=== PATIENT | female | born 1950 | race Hispanic/Latino ===

== ENCOUNTER → 2018-06-25 | Outpatient (CLI) | payer MEDICARE ==
[~2018-06-25] MED LIST: ATORVASTATIN CA20 MG PO; GABAPENTIN300 MG PO; HYDROCHLOROTHIA25 MG PO; LORATADINE10 MG PO; METOPROLOL TART50 MG PO; TYLENOL EXTRA500 MG PO
--- NOTE | 2018-06-25 13:45 | Diagnostic Imaging Report ---
EXAM: Thyroid Ultrasound INDICATION: \[id number] \S\[id number] \S\THYROID NODULE COMPARISON: FNA 2016 TECHNIQUE: Transverse and sagittal images were obtained of the thyroid gland. FINDINGS: Thyroid gland: Size: Right lobe: 4.1 x 2.3 x 2.4 cm, Normal in size Left lobe: Surgically absent Isthmus: 0.3 cm, Normal in size Appearance: Heterogeneous echotexture without increased vascularity Masses/Nodules: Right lobe: 2.8 x 2.1 x 2.1 cm solid (2 pts) nodule in the superior pole with smooth margin (0 pts), yypckh-ywjs-iehy (3 pts), isoechoic (1 pt), and no calcifications (0 pts). TR4c (>1.5 cm), Moderately Suspicious: FNA. It previously measures 2.0 x 1.9 x 1.8 cm, per report. FNA obtained on 01/19/2017. 0.7 cm cystic (0 pts) nodule in the superior pole with smooth margin (0 pts), eglqc-ulto-syuq (0 pts), anechoic (0 pts), and no calcifications (0 pts). Previously 0.5 cm. TR1, Benign: No FNA 0.6 cm cystic (0 pts) nodule in the inferior pole with smooth margin (0 pts), fokia-rqha-yfsa (0 pts), anechoic (0 pts), and no calcifications (0 pts). Previously not seen. TR2, Not Suspicious: No FNA. Parathyroid: No focal parathyroid masses. 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 No recurrent nodules at the surgical site. Complex 2.8 cm right thyroid nodule, which appears mildly increased report when compared to prior exam which measured up to 2 cm. TR4c (>1.5 cm), Moderately Suspicious: Consider repeat FNA TI-RADS Lexicon: TR1, Benign: No FNA TR2, Not Suspicious: No FNA. TR3a (<1.5 cm): No follow-up. TR3b (1.5-2.5 cm), Mildly Suspicious: Follow at 1, 3, 5 years. TR3c (>2.5 cm), Mildly Suspicious: FNA. TR4a (<1.0 cm): No follow-up. TR4b (1.0-1.5 cm), Moderately Suspicious: Follow at 1, 2, 3, 5 years. TR4c (>1.5 cm), Moderately Suspicious: FNA. TR5a (<0.5 cm): No follow-up. TR5b (0.5-1.0 cm), Highly Suspicious: Follow at 1, 2, 3, 4, 5 years. TR5c (>1.0 cm), Highly Suspicious: FNA. *Rebiopsy if new suspicious features *No recommendation at this time for significant interval growth. Nodule Characteristics: * Benign features: cystic, hyperechoic, comet-tail artifact, complete halo * Minor suspicious features: solid, hypoechoic, other calcifications * Major suspicious features: microcalcifications, marked hypoechoic (less than strap muscle), suspicious lymph nodes, taller than wide, lobulated or ill-defined margins. Literature: ACR Thyroid Imaging, Reporting and Data System (TI-RADS): White Paper of the ACR TI-RADS Committee. J Am Sneha Radiol 2017. Signed by: Dr. Mima Mantilla M.D. on 06/25/2018 1:41 PM
== END ==
LOC: US 09:55
PROVIDERS: ATTEND Otolaryngology
DX: E04.1 Nontoxic single thyroid nodule (principal)
CPT/HCPCS: 76536

== ENCOUNTER → 2018-07-12 | Outpatient (CLI) | payer MEDICARE ==
--- NOTE | 2018-07-12 11:13 | Diagnostic Imaging Report ---
PROCEDURE:BIOPSY THYROID FNA COMPARISON:None. Preprocedure diagnosis: Right thyroid nodule Post procedure diagnosis: Right thyroid nodule Stain Applicator: Live Fisher M.D. Sedation/anesthesia: None Additional medications: Lidocaine 1% for local anesthesia Estimated blood loss: Minimal Blood product administered: None Implants/grafts: None Specimens: Fine needle aspiration specimens x3 Complications: No immediate Condition at completion: Stable Disposition: Discharge home FINDINGS: Informed consent was obtained and documented in the medical record after discussion of risks and benefits. The right cervical region was prepped and draped in the standard sterile fashion. 1% lidocaine was infiltrated into the skin and subcutaneous tissues for local anesthesia. Then under continuous sonographic guidance a total of 3 fine needle aspiration specimens of the right thyroid nodule were obtained using 25 gauge needles. Specimens were submitted to cytopathology personnel and adequacy was confirmed. At the conclusion of sampling the needle was removed and a sterile dressing was applied. Patient tolerated the procedure well without immediate location. CONCLUSION: Successful ultrasound-guided fine needle aspiration of a right thyroid nodule as above. Dictated by: Live Fisher M.D. on 07/12/2018 at 11:21 Electronically approved by: Live Fisher M.D. on 07/12/2018 at 11:21
--- NOTE | 2018-07-12 11:13 | Diagnostic Imaging Report ---
PROCEDURE:ULTRASOUND GUIDANCE FOR PROCEDURE COMPARISON:None. INDICATIONS: RT THYROID NODULE PROCEDURE: Refer to conclusion CONCLUSION: For full dictated report, please refer to "BIOPSY THYROID FNA" also from 07/12/2018. Dictated by: Live Fisher M.D. on 07/12/2018 at 11:21 Electronically approved by: Live Fisher M.D. on 07/12/2018 at 11:21
== END ==
LOC: US 07:56
PROVIDERS: ATTEND Otolaryngology
DX: E07.9 Disorder of thyroid, unspecified (principal)
CPT/HCPCS: 10022; 76942; 88172; 88173; 88305

== ENCOUNTER 2019-05-03 16:16 | Emergency (ER) | payer MEDICARE ==
[~2019-05-03] VITALS: Ht 149.9 cm; Wt 83.0 kg
--- OUTSIDE RECORDS SUMMARY | 2019-05-03 16:20 | XMS REPORT | Clinical Summary ---
Author Author [facility] Organization [facility] Address Unknown Phone Unavailable Care Team Providers Care Manager Bench Name Role Phone Deisi Oliveira MD PCP Allergies No Known Allergies Medications End Date Status Medication Sig Dispensed Refills Start Date Active MULTIVITAMIN take 1 tablet 30 0 TABIndications: by oral route 9 Hypokalemia once daily with food Active albuterol (PROVENTIL HFA) Inhale 2 6.7 g 1 90 mcg/actuation Puffs by 5 inhalerIndications: RAD mouth 4 times (reactive airway disease) daily as needed (cough). Active dexlansoprazole Take 1 tablet 90 capsule 0 (DEXILANT) 30 mg delayed by mouth once 7 release a day as capsuleIndications: needed for Dyspepsia gastritis.. Active gabapentin (NEURONTIN) Take 1 90 capsule 3 300 mg capsule by 8 capsuleIndications: mouth 3 times Musculoskeletal pain daily. Active ibuprofen (MOTRIN) 600 mg Take 1 tablet 30 tablet 1 tabletIndications: Acute by mouth 8 pain of left knee every 8 hours as needed for Pain. Active alendronate (FOSAMAX) 70 TOME SARIKA (1) 12 tablet 3 mg tabletIndications: TABLETA(S) 9 Senile osteoporosis POR LA BOCA SARIKA VES A LA SEMANA EN [place] VACIO CON 8 ONZAS DE AGUA Y MANTENGASE VERTICAL POR 30 MINUTOS.. Active levothyroxine (SYNTHROID) Take 1 tablet 90 tablet 3 50 mcg tabletIndications: by mouth 9 Hypothyroidism, daily. unspecified type Active losartan (COZAAR) 50 mg TOME SARIKA (1) 180 tablet 3 tabletIndications: TABLETA(S) 9 Essential hypertension POR LA BOCA DOS VECES AL KAYLA.. Active hydroCHLOROthiazide Take 1/2 45 tablet 3 (HYDRODIURIL) 25 mg tablet (12.5 9 tabletIndications: mg) by mouth Essential hypertension each day for blood pressure.. Active metoprolol tartrate TOME SARIKA (1) 180 tablet 3 (LOPRESSOR) 100 mg TABLETA(S) 9 tabletIndications: POR LA BOCA Essential hypertension DOS VECES AL KAYLA PARA PRESION.. Active calcium carb/vit Take 1 tablet 180 tablet 3 D3/minerals (CALCIUM by mouth 2 9 CARBONATE-VIT D3-MIN) 600 times daily. mg (1,500 mg)-400 unit ChewIndications: Senile osteoporosis Active fluticasone (FLONASE Use 1 [place] 16 g 2 ALLERGY RELIEF) 50 in each 9 mcg/actuation nasal nostril sprayIndications: Acute daily. sinusitis, recurrence not specified, unspecified location Active cetirizine (ZYRTEC) 10 mg Take 1 tablet 90 tablet 3 tabletIndications: Acute by mouth 9 sinusitis, recurrence not daily. specified, unspecified location Active atorvastatin (LIPITOR) 20 TOME SARIKA (1) 90 tablet 3 mg tabletIndications: TABLETA(S) 9 Hyperlipidemia, POR LA BOCA unspecified AL hyperlipidemia type ACOSTARSE.. 11/10/2018 Discontinued loratadine (CLARITIN) 10 Take 1 tablet 90 tablet 1 mg tabletIndications: by mouth 4 Sinusitis daily. 11/10/2018 Discontinued ergocalciferol (VITAMIN Take 1 12 capsule 2 D2) 50,000 unit capsule by 6 capsuleIndications: mouth weekly. Vitamin D deficiency 11/10/2018 Discontinued sertraline (ZOLOFT) 25 mg Take 1 tablet 90 tablet 0 tabletIndications: by mouth at 6 Agitation bedtime nightly. 06/19/2018 Discontinued metoprolol tartrate Take 1 tablet 180 tablet 3 (LOPRESSOR) 100 mg by mouth 2 7 tabletIndications: times daily Essential hypertension Take for blood pressure.. 11/10/2018 Discontinued alendronate (FOSAMAX) 70 Take 1 tablet 12 tablet 3 mg tabletIndications: once a week 8 Senile osteoporosis on empty stomach with 8 oz of water and remain upright for 30 minutes. 11/10/2018 Discontinued atorvastatin (LIPITOR) 20 TOME SARIKA (1) 90 tablet 0 mg tabletIndications: TABLETA(S) 8 Hyperlipidemia with POR LA BOCA target LDL less than 130 AL ACOSTARSE. 11/10/2018 Discontinued hydroCHLOROthiazide TOME SARIKA (1) 90 tablet 0 (HYDRODIURIL) 25 mg TABLETA(S) 8 tabletIndications: POR LA BOCA Essential hypertension SARIKA VEZ AL KAYLA PARA LA PRESION. 11/10/2018 Discontinued losartan (COZAAR) 50 mg TOME SARIKA (1) 180 tablet 0 tabletIndications: TABLETA(S) 8 Essential hypertension POR LA BOCA DOS VECES AL KAYLA. 11/10/2018 Discontinued levothyroxine (SYNTHROID) Take 1 tablet 90 tablet 3 50 mcg tabletIndications: by mouth 8 Hypothyroidism, daily. unspecified type 11/10/2018 Discontinued metoprolol tartrate TOME SARIKA (1) 180 tablet 2 (LOPRESSOR) 100 mg TABLETA(S) 8 tabletIndications: POR LA BOCA Essential hypertension DOS VECES AL KAYLA PARA PRESION. 11/11/2018 Discontinued alendronate (FOSAMAX) 70 Take 1 tablet 12 tablet 3 mg tabletIndications: once a week 9 Senile osteoporosis on empty stomach with 8 oz of water and remain upright for 30 minutes. 11/15/2018 amoxicillin-clavulanate Take 2 20 tablet 0 (AUGMENTIN XR) 1,000-62.5 tablets by 9 mg extended release mouth 2 times tabletIndications: Acute daily for 5 sinusitis, recurrence not days. specified, unspecified location 01/10/2019 azithromycin (ZITHROMAX) Take 2 6 Each 0 250 mg tabletIndications: tablets by 9 Cough mouth on the first day, then take one tablet every day for the next 4 days. Active Problems Problem Noted Date Dyspepsia: on prn meds//on meds///patient educated f/u with PCP in 6 wk 07/16/201807/29 Renal artery aneurysm: s/p embolization in January 2015 08/25/2014 Liver mass: hemangioma noted on imaging 08/25/2014 Adrenal mass: stated to be benign on imaging 08/25/2014 Hyperlipidemia with target LDL less than 130 01/08/2010 Hip pain 12/25/2008 GERD (gastroesophageal reflux disease) 02/02/2008 HTN (hypertension) 09/24/2006 Papillary carcinoma f/u at out side clinic per patient 07/29 Overview: s/p total thyroidectomy Encounters Care Team Description Date Type Specialty Deisi Oliveira MD 01/12/2019 Ancillary Radiology Procedure 01/12/2019 Travel Deisi Oliveira MD Hypertension, unspecified type (Primary Dx); Screening for breast cancer; Prediabetes; Cough; Obesity (BMI 30-39.9); Hypothyroidism, unspecified type; Hyperlipidemia, unspecified hyperlipidemia type 01/05/2019 Office Visit [facility] 01/05/2019 Travel Deisi Oliveira MD Essential hypertension 12/21/2018 Refill [facility] Deisi Oliveira MD Tinnitus of both ears (Primary Dx); Hypothyroidism, unspecified type; Essential hypertension; Senile osteoporosis; Acute sinusitis, recurrence not specified, unspecified location; Breathing difficulty; Hyperlipidemia, unspecified hyperlipidemia type; Prediabetes; Dietary counseling for Above / Below Normal BMI; Exercise counseling for Above Normal BMI Only!; Hearing loss of left ear, unspecified hearing loss type 11/10/2018 Office Visit [facility] 11/10/2018 Travel Deisi Oliveira MD Senile osteoporosis 11/08/2018 Refill [facility] Deisi Oliveira MD Latifi, Haleema T, MD Acute pain of left knee: 1 mo: to bend: meds given/cons PT //patient educated f/u with PCP in 6 wk 07/29 (Primary Dx); Encounter for vaccination; Essential hypertension on meds///patient educated f/u with PCP in 6 wk 07/29 ; Papillary carcinoma f/u at out side clinic per patient 07/29 on meds///patient educated f/u with PCP in 6 wk 07/29 ; Dyslipidemia: on meds///patient educated f/u with PCP in 6 wk 07/29 ; Non morbid obesity due to excess calories patient educated f/u with PCP in 6 wk 07/29 ; Dyspepsia: on prn meds//on meds///patient educated f/u with PCP in 6 wk 07/2907/16/2018 Office Visit Family Practice Deiis Oliveira MD Essential hypertension 06/19/2018 Refill Family Practice after 05/02/2018 Immunizations Name Administration Dates Next Due Herpes Zoster Vaccine In 06/30/2014 Clinic Influenza Vaccine 08/12/2016, 09/26/2015, 08/25/2014, 10/23/2011, 08/23/2010, 12/25/2008 Influenza Vaccine, 12/29/2017 Seasonal, Injectable Influenza, 07/16/2018 Vaccine<FLUCELVAX>(Multi- Dose) PPV 23 (Pneumococcal 12/29/2017 Polysaccharide 23 Valent) Pneumococcal 13-valent 08/12/2016 conj 0.5 mL injection Tdap Tetanus, diphtheria, 12/25/2008 acellular pertussis Vaccine Triamcinolone 40mg/ml Inj 11/14/2014 Family History Medical History Relation Name Comments Diabetes Father Arthritis Mother Hypertension Mother Relation Name Status Comments Brother Alive Brother Alive Brother Alive Daughter Alive Father Alive Mother Alive Sister Alive Sister Alive Sister Alive Sister Alive Sister Alive Son Alive Son Alive Son Alive Son Alive Social History Date Tobacco Use Types Packs/Day Years Used Never Smoker Smokeless Tobacco: Never Used Tobacco Cessation: Counseling Given: No Drinks/Week oz/Week Comments Alcohol Use 0 Standard drinks or equivalent 0.0 No Food Insecurity Answer Date Recorded Within the past 12 months, you worried that your Never true 01/05/2019 food would run out before you got money to buy more. Within the past 12 months, the food you bought Never true 01/05/2019 just didn't last and you didn't have money to get more. Sex Assigned at Date Recorded Not on file Industry Job Start Date Occupation Not on file Not on file Not on file Travel End Travel History Travel Start No recent travel history available. Last Filed Vital Signs Reading Time Taken Comments Vital Sign 138/78 01/05/2019 10:51 AM CDT Blood Pressure 59 01/05/2019 10:13 AM CDT Pulse 36.7 C (98 F) 01/05/2019 10:13 AM CDT Temperature 19 01/05/2019 10:13 AM CDT Respiratory Rate 100% 11/10/2018 10:45 AM APPRENTICE COOK Oxygen Saturation - - Inhaled Oxygen Concentration 81.5 kg (179 lb 9.6 oz) 01/05/2019 10:13 AM CDT Weight 151.9 cm (4' 11.8") 01/05/2019 10:13 AM CDT Height 35.31 01/05/2019 10:13 AM CDT Body Mass Index Plan of Treatment Care Team Description Date Type Specialty Deisi Oliveira MD [address] [facility] [address] [place] [address] [phone] pt felt and injured her head a week ago and is experiencing headaches 05/18/2019 Office Visit Family [facility] Maintenance Due Date Last Done Comments IMM Influenza Seasonal 07/12/2019 07/16/2018, 12/29/2017, 10/23/2011Jul to December (>/=19 yrs) Colonoscopy 3yr 01/06/2020 01/05/2017 Breast Cancer Scrn 01/13/2020 01/12/2019, 11/27/2017, 09/11/2016, (Yearly) Additional history exists IMM Pneumococcal Age 66 Completed 08/12/2016 and Up Implants Device Identifier Shelf Expiration Date Model / Serial / Lot Implanted Type Area Manufactur er 04/10/2017 [id number] / / [id number] Azur Peripheral Coil System Right: Artery, Detachable 18 Framing Coil 8mm X Renal 20cm Implanted: Qty: 1 on 11/27/2014 by Kareen Nava MD at [facility] 07/11/2019 [id number] / / [id number] Azur Cx Peripheral Coil System Right: Artery, Detachable 18 Cx Coil 6mm X 20cm Renal Implanted: Qty: 1 on 11/27/2014 by Kareen Nava MD at [facility] 07/11/2019 [id number] / / [id number] Azur Cx Peripheral Coil System Right: Artery, Detachable 18 Cx Coil 6mm X 20cm Renal Implanted: Qty: 1 on 11/27/2014 by Kareen Nava MD at [facility] 05/11/2015 / / [id number] Mynxgrip Vascular Closure Device Right: Artery, ACCESS 6f/7f Renal CLOSURE Implanted: Qty: 1 on 11/27/2014 by Kareen Perdomo MD at [facility] Description: MYNXGRIP Vascular Closure Device Ref # [id number] Procedures Comments Procedure Name Priority Date/Time Associated Diagnosis MAMMOGRAM BILAT SCREEN Routine 01/12/2019 Screening for breast DIGITAL 8:47 AM CDT cancer LIVER PROFILE Routine 11/10/2018 Hyperlipidemia, 10:53 AM APPRENTICE COOK unspecified hyperlipidemia type LIPID PROFILE Routine 11/10/2018 Hyperlipidemia, 10:53 AM APPRENTICE COOK unspecified hyperlipidemia type BASIC METABOLIC PANEL Routine 11/10/2018 Prediabetes 10:53 AM APPRENTICE COOK HEMOGLOBIN A1C Routine 11/10/2018 Prediabetes 10:53 AM APPRENTICE COOK FREE T4 Routine 11/10/2018 Hypothyroidism, 10:53 AM APPRENTICE COOK unspecified type THYROID STIMULATING Routine 11/10/2018 Hypothyroidism, HORMONE (TSH) 10:53 AM APPRENTICE COOK unspecified type NONINVASV OXYGEN Routine 11/10/2018 Breathing difficulty SATUR;SINGLE 10:23 AM APPRENTICE COOK PURE TONE AUDIOMETRY Routine 11/10/2018 Tinnitus of both ears (THRESHOLD); AIR ONLY 10:23 AM APPRENTICE COOK after 05/02/2018 Results * MAMMOGRAM BILAT SCREEN DIGITAL (01/12/2019 8:47 AM CDT) Specimen Impressions Performed At IMPRESSION: BENIGN SMS There is no mammographic evidence of malignancy. A 1 year screening mammogram is recommended. I have reviewed the study and agree with the findings in the report. This document has been electronically signed. Fiorella Jeronimo M.D. to,at/penrad:01/12/2019 09:12:18 Legislative Advocate: Osvaldo Dickinson Sr. Clinical Pharmacy Coordinator, [facility] letter sent: Benign Exam Mammogram BI-RADS: 2 Benign G0202 z12.31 Narrative Performed At #[id number] - MAMMOGRAM BILAT SCREEN DIGITAL SMS BILATERAL DIGITAL SCREENING MAMMOGRAM WITH CAD: 01/12/2019 CLINICAL: Screening for malignancy. Comparison is made to exams dated:11/27/2017 [facility], 09/11/2016 [facility] [place], 03/15/2015, 12/05/2013, and 04/22/2012 [facility]. The tissue of both breasts is heterogeneously dense. This may lower the sensitivity of mammography. Current study was also evaluated with a Computer Aided Detection (CAD) system. There are benign masses in both breasts.There also are benign calcifications in both breasts. No significant masses, calcifications, or other findings are seen in either breast. There has been no significant interval change. Procedure Note Interface, Rad/Mammog In - 01/12/2019 10:12 AM CDT #[id number] - MAMMOGRAM BILAT SCREEN DIGITAL BILATERAL DIGITAL SCREENING MAMMOGRAM WITH CAD: 01/12/2019 CLINICAL: Screening for malignancy. Comparison is made to exams dated: 11/27/2017 [facility], 09/11/2016 [facility], 03/15/2015, 12/05/2013, and 04/22/2012 [facility]. The tissue of both breasts is heterogeneously dense. This may lower the sensitivity of mammography. Current study was also evaluated with a Computer Aided Detection (CAD) system. There are benign masses in both breasts. There also are benign calcifications in both breasts. No significant masses, calcifications, or other findings are seen in either breast. There has been no significant interval change. IMPRESSION IMPRESSION: BENIGN There is no mammographic evidence of malignancy. A 1 year screening mammogram is recommended. I have reviewed the study and agree with the findings in the report. This document has been electronically signed. Fiorella Jeronimo M.D. to,at/johnrad:01/12/2019 09:12:18 Legislative Advocate: Osvaldo Dickinson . Clinical Pharmacy Coordinator, [facility] letter sent: Benign Exam Mammogram BI-RADS: 2 Benign G0202 z12.31 Performing Organization Address City/State/Zipcode Phone Number SMS * HEMOGLOBIN A1C (11/10/2018 10:53 AM APPRENTICE COOK) Hemoglobin A1c 6.3 (H) 4.3 - 6.1 % [facility] Est Average 134.1 mg/dL [facility] Gluc Specimen Blood Performing Organization Address City/State/Zipcode Phone Number M[facility] * TSH (11/10/2018 10:53 AM APPRENTICE COOK) TSH 3.37 0.57 - 3.74 uIU/mL [facility] 1 Specimen Blood Performing Organization Address [facility] Phone Number [facility]IN[facility] 1 * FREE T4 (11/10/2018 10:53 AM APPRENTICE COOK) Free T4 0.91 0.61 - 1.18 ng/dl [facility] Comment: 1 females: 1st Trimester-0.52-1.10 ng/dL 2nd Trimester=0.45-0.99 ng/dL 3rd Trimester=0.48-0.95 ng/dL Specimen Blood Performing Organization Address [facility] Phone Number M[facility]YS BT MAIN-STATION 1 * LIVER PROFILE (11/10/2018 10:53 AM APPRENTICE COOK) Protein, Total, 6.9 6.0 - 8.3 g/dL [facility] Serum 1 Albumin 4.0 3.7 - 5.3 g/dL BT [facility] 1 Bilirubin, 0.5 0.2 - 1.2 mg/dL BT [facility] Total 1 Alkaline 65 34 - 104 U/L BT [facility] Phosphatase, S 1 AST (SGOT) 13 13 - 39 U/L BT MA[facility] 1 ALT 21 7 - 52 U/L BT MA[facility] 1 D Bilirubin 0.1 0.0 - 0.2 mg/dL BT MAIN[facility] 1 Specimen Blood Performing Organization Address [facility] Phone Number [facility] BT MAIN-ST[facility] 1 * LIPID PROFILE (11/10/2018 10:53 AM APPRENTICE COOK) Cholesterol 133 mg/dL BT [facility] Comment: 1 REFERENCE RANGE: Desirable: <200 mg/dL Borderline: 200-240 mg/dL High Risk: >240 mg/dL Triglyceride 195 (H) <150 mg/dL BT [facility] Comment: 1 REFERENCE RANGE: Normal: <150 mg/dL Borderline High: 150-199 mg/dL High: 200-499 mg/dL Very High: >gp=796 mg/dL HDL 48 mg/dL BT [facility] Comment: 1 Increased CHD risk: <40 mg/dL Decreased CHD risk: >60 mg/dL LDL 46 mg/dL BT [facility] Comment: 1 REFERENCE RANGE: Optimal: <100 mg/dL Near Optimal: 100-129 mg/dL Borderline High: 130-159 mg/dL High: 160-189 mg/dL Very High: >yx=093 mg/dL Specimen Blood Performing Organization Address City/State[facility] Phone Number [facility] 1 * BASIC METABOLIC PANEL (11/10/2018 10:53 AM APPRENTICE COOK) CO2 30 21 - 31 mmol/L BT MAIN-STATION 1 Chloride 102 98 - 107 mmol/L BT MAIN-STATION 1 Potassium 3.7 3.5 - 5.1 mmol/L BT MAIN-STATION 1 Sodium 141 136 - 145 mmol/L BT MAIN-STATION 1 Glucose 101 70 - 110 mg/dL BT MAIN[facility] 1 BUN 15 7 - 25 mg/dL BT MAIN-STATION 1 Creatinine 0.60 0.6 - 1.2 mg/dL BT MAIN-STATION 1 Anion Gap 9 BT MAIN-STATION 1 Calcium 8.4 (L) 8.6 - 10.3 mg/dL BT MAIN-STATION 1 GFR, Estimated >60 mL/min/1.73 m2 BT MAIN-STATION 1 eGFR If Africn >60 mL/min/1.73 m2 BT MAIN-STATION Am 1 Specimen Blood Performing Organization Address City/[facility] Phone Number [facility] BT [facility] 1 after 05/02/2018 Insurance Type Payer Benefit Subscriber ID Effective Phone Address Plan / Dates Group MEDICARE MEDICARE xxxxxxxxxxx 2016-P [phone] [id number] [place] [address] (Work) Advance Directives Date Inactivated Comments Code Status Date Activated 11/28/2014 4:25 PM Full Code 11/27/2014 5:45 PM
--- OUTSIDE RECORDS SUMMARY | 2019-05-03 16:20 | XMS REPORT ---
Author Author [facility] Address Unknown Phone Unavailable Care Team Providers Care Fire Coordinator Name Role Phone RAN MANNY Unavailable Unavailable Bernice GALVAN Unavailable Unavailable Problems This patient has no known problems. Allergies, Adverse Reactions, Alerts This patient has no known allergies or adverse reactions. Medications This patient has no known medications. Encounters Start Date/Time End Date/Time Encounter Type Admission Type Attending [facility] Care Department Encounter ID 2019-05-18 00:00:00 2019-05-18 00:00:00 Outpatient [facility] [id number] 2019-03-22 00:00:00 2019-03-22 00:00:00 Outpatient [facility] [id number] 2019-03-22 00:00:00 2019-03-22 00:00:00 Outpatient [facility] [id number] 2019-03-02 00:00:00 2019-03-02 00:00:00 Outpatient [facility] [id number] 2019-01-12 08:11:29 2019-01-12 08:11:29 Outpatient [facility] [id number] 2019-01-05 10:12:22 2019-01-05 10:12:22 Outpatient [facility] [id number] 2018-11-10 11:00:57 2018-11-10 11:00:57 Outpatient [facility] [id number] 2018-11-10 09:32:53 2018-11-10 09:32:53 Outpatient [facility] [id number] 2018-08-30 00:00:00 2018-08-30 00:00:00 Outpatient [facility] [id number] 2018-07-16 14:18:29 2018-07-16 14:18:29 Outpatient [facility] [id number] 2018-07-12 00:00:00 2018-07-12 00:00:00 Outpatient [facility] [id number] 2018-06-19 00:00:00 2018-06-19 00:00:00 Outpatient [facility] [id number] 2018-02-18 09:51:28 2018-02-18 09:51:28 Outpatient [facility] [id number] 2018-02-12 11:24:53 2018-02-12 11:24:53 Outpatient [facility] [id number] 2018-02-12 09:26:39 2018-02-12 09:26:39 Outpatient [facility] [id number] 2018-02-09 08:48:18 2018-02-09 08:48:18 Outpatient [facility] [id number] 2017-12-29 11:15:06 2017-12-29 11:15:06 Outpatient [facility] [id number] 2017-11-27 08:07:18 2017-11-27 08:07:18 Outpatient [facility] [id number] 2017-11-06 08:23:49 2017-11-06 08:23:49 Outpatient [facility] [id number] 2017-11-03 13:52:07 2017-11-03 13:52:07 Outpatient [facility] [id number] 2017-08-12 00:00:00 2017-08-12 00:00:00 Outpatient [facility] [id number] 2017-06-02 00:00:00 2017-06-02 00:00:00 Outpatient [facility] [id number] 2017-05-01 15:03:06 2017-05-01 15:03:06 Outpatient [facility] [id number] 2017-05-01 15:02:59 2017-05-01 15:02:59 Outpatient [facility] [id number] 2017-05-01 13:29:47 2017-05-01 13:29:47 Outpatient [facility] [id number] 2017-04-30 15:12:31 2017-04-30 15:12:31 Outpatient [facility] [id number] Results Test Description Test Time Test Comments Text Results Atomic Results Result Comments FNA THYROID 2018-07-12 11:21:00 [place] [address] Patient Name: MAYANK OLSON MR #: [id number] : 1950 Age/Sex: 68/F Req #: [id number] Adm Physician: Ordered by: RAN JOSÉ, MANNY JOSÉ Report #: [id number] Location: US Room/Bed: Procedure: [id number] US/FNA THYROID Exam Date: Exam Time: REPORT STATUS: Signed PROCEDURE: BIOPSY THYROID FNA COMPARISON: None. Preprocedure diagnosis: Right thyroid nodule Post procedure diagnosis: Right thyroid nodule Soakers Supervisor: Magda Wylie M.D. Sedation/anesthesia: None Additional medications: Lidocaine 1% for local anesthesia Estimated blood loss: Minimal Blood product administered: None Implants/grafts: None Specimens: Fine needle aspiration specimens x3 Complications: No immediate Condition at completion: Stable Disposition: Discharge home FINDINGS: Informed consent was obtained and documented in the medical record after discussion of risks and benefits. The right cervical region was prepped and draped in the standard sterile fashion. 1% lidocaine was infiltrated into the skin and subcutaneous tissues for local anesthesia. Then under continuous sonographic guidance a total of 3 fine needle aspiration specimens of the right thyroid nodule were obtained using 25 gauge needles. Specimens were submitted to cytopathology personnel and adequacy was confirmed. At the conclusion of sampling the needle was removed and a sterile dressing was applied. Patient tolerated the procedure well without immediate location. CONCLUSION: Successful ultrasound-guided fine needle aspiration of a right thyroid nodule as above. Dictated by: Magda Wylie M.D. on 07/12/2018 at 11:21 Electronically approved by: Magda Wylie M.D. on 07/12/2018 at 11:21 Dictated By: MAGDA WYLIE MD 1121 Transcribed By: VIPUL on 07/12/18 1121 COPY TO: MANNY TONG GUIDANCE FOR PROCEDURE 2018-07-12 11:21:00 [place] [address] Patient Name: MAYANK OLSON MR #: [id number] : 1950 Age/Sex: 68/F Req #: [id number] Adm Physician: Ordered by: MANNY TONG MD, MD Report #: [id number] Location: US Room/Bed: Procedure: [id number] US/US GUIDANCE FOR PROCEDURE Exam Date: Exam Time: REPORT STATUS: Signed PROCEDURE: ULTRASOUND GUIDANCE FOR PROCEDURE COMPARISON: None. INDICATIONS: RT THYROID NODULE PROCEDURE: Refer to conclusion CONCLUSION: For full dictated report, please refer to "BIOPSY THYROID FNA" also from 07/12/2018. Dictated by: Magda Wylie M.D. on 07/12/2018 at 11:21 Electronically approved by: Magda Wylie M.D. on 07/12/2018 at 11:21 Dictated By: MAGDA WYLIE MD 112 Transcribed By: VIPUL on 07/12/18 1121 COPY TO: MANNY TONG THYROID 2018-06-25 13:31:00 [place] [address] Patient Name: MAYANK OLSON MR #: [id number] : 1950 Age/Sex: 68/F Req #: [id number] Adm Physician: Ordered by: MANNY TONG MD, MD Report #: [id number] Location: US Room/Bed: Procedure: [id number] US/US THYROID Exam Date: 06/25/18 Exam Time: 1028 REPORT STATUS: Signed EXAM: Thyroid Ultrasound INDICATION: COMPARISON: FNA 2016 TECHNIQUE: Transverse and sagittal images were obtained of the thyroid gland. FINDINGS: Thyroid gland: Size: Right lobe: 4.1 x 2.3 x 2.4 cm, Normal in size Left lobe: Surgically absent Isthmus: 0.3 cm, Normal in size Appearance: Heterogeneous echotexture without increased vascularity Masses/Nodules: Right lobe: 2.8 x 2.1 x 2.1 cm solid (2 pts) nodule in the superior pole with smooth margin (0 pts), houecq-pgew-mohc (3 pts), isoechoic (1 pt), and no calcifications (0 pts). TR4c (>1.5 cm), Moderately Suspicious: FNA. It previously measures 2.0 x 1.9 x 1.8 cm, per report. FNA obtained on 01/19/2017. 0.7 cm cystic (0 pts) nodule in the superior pole with smooth margin (0 pts), idypq-wkrl-lvtn (0 pts), anechoic (0 pts), and no calcifications (0 pts). Previously 0.5 cm. TR1, Benign: No FNA 0.6 cm cystic (0 pts) nodule in the inferior pole with smooth margin (0 pts), zdiiz-ylon-earx (0 pts), anechoic (0 pts), and no calcifications (0 pts). Previously not seen. TR2, Not Suspicious: No FNA. Parathyroid: No focal parathyroid masses. 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 No recurrent nodules at the surgical site. Complex 2.8 cm right thyroid nodule, which appears mildly increased report when compared to prior exam which measured up to 2 cm. TR4c (>1.5 cm), Moderately Suspicious: Consider repeat FNA TI-RADS Lexicon: TR1, Benign: No FNA TR2, Not Suspicious: No FNA. TR3a (<1.5 cm): No follow-up. TR3b (1.5-2.5 cm), Mildly Suspicious: Follow at 1, 3, 5 years. TR3c (>2.5 cm), Mildly Suspicious: FNA. TR4a (<1.0 cm): No follow-up. TR4b (1.0-1.5 cm), Moderately Suspicious: Follow at 1, 2, 3, 5 years. TR4c (>1.5 cm), Moderately Suspicious: FNA. TR5a (<0.5 cm): No follow-up. TR5b (0.5-1.0 cm), Highly Suspicious: Follow at 1, 2, 3, 4, 5 years. TR5c (>1.0 cm), Highly Suspicious: FNA. *Rebiopsy if new suspicious features *No recommendation at this time for significant interval growth. Nodule Characteristics: * Benign features: cystic, hyperechoic, comet-tail artifact, complete halo * Minor suspicious features: solid, hypoechoic, other calcifications * Major suspicious features: microcalcifications, marked hypoechoic (less than strap muscle), suspicious lymph nodes, taller than wide, lobulated or ill-defined margins. Literature: ACR Thyroid Imaging, Reporting and Data System (TI- RADS): White Paper of the ACR TI-RADS Committee. J Am Sneha Radiol 2017. Signed by: Dr. Jeremiah De La Fuente M.D. on 06/25/2018 1:41 PM Dictated By: JEREMIAH DE LA FUENTE MD 1341 Transcribed By: MAURIZIO on 06/25/18 1341 COPY TO: MANNY TONG [place] BRAIN [place] [id number] Patient Name: MAYANK OLSON MR #: [id number] : 1950 Age/Sex: 67/F Req #: [id number] Adm Physician: Ordered by: ZELDA YI FLAT FOLDING MACHINE OPERATOR Report #: [id number] Location: Room/Bed: Procedure: [id number] CT/CT BRAIN WO Exam Date: 06/19/17 Exam Time: 1400 REPORT STATUS: Signed EXAMINATION: Head CT HISTORY: Weakness, dizziness, elevated blood pressure COMPARISON: None. TECHNIQUE: Multidetector axial images were obtained without contrast from the foramen magnum to the vertex . The images were reconstructed using brain and bone algorithms. Thin section brain images were reformatted into coronal and sagittal planes. Intravenous contrast: None. Motion/streaking artifact limits the evaluation of the skull base and posterior cranial fossa. FINDINGS: Parenchyma: 1. Minimal in the bilateral anterior/inferior frontal cortical white matter hypodensities, most likely nonspecific chronic microvascular ischemic changes. 2. No mass or hemorrhage. No CT evidence of acute territorial vascular insult. Extra-axial spaces:No abnormal density. No extra-axial fluid collections . Incidentally noted tiny lipomas along the anterior aspect of the interhemispheric fissure. Brain volume: Normal for age. Ventricles: No hydrocephalus or displacement. Arteries: No density suggestive of thrombus. Dural sinuses: No abnormal density. Extra-axial spaces: No abnormal density. Foramen magnum: No mass, Chiari malformation, or basilar invagination. Sella: No obvious mass. Paranasal/mastoid sinuses: Partial opacification of the right maxillary sinus with air-fluid level which may be related to acute sinusitis. Skull/Scalp: No lytic or blastic lesions. No fractures. IMPRESSION: 1. No intracranial hemorrhage or acute cortical infarct. 2. Mild chronic microvascular ischemic changes. 3. Possible right maxillary acute sinusitis. Signed by: Dr. Hazel Rodriguez M.D. on 06/19/2017 2:31 PM Dictated By: HAZEL RODRIGUEZ MD 1431 Transcribed By: MAURIZIO on 06/19/17 1431 COPY TO: ZELDA YI NP [place] [address] Patient Name: MAYANK OLSON MR #: [id number] : 1950 Age/Sex: 67/F Req #: [id number] [facility] Physician: Ordered by: MANNY TONG MD, MD Report #: [id number] Location: Room/Bed: Procedure: [id number] US/US THYROID Exam Date: 06/16/17 Exam Time: 1120 REPORT STATUS: Signed PROCEDURE: US THYROID COMPARISON: Thyroid ultrasound 01/06/2017. INDICATIONS: PAPILLARY THYROID CARCINOMA TECHNIQUE: Transverse and longitudinal robertson-scale sonographic images of the thyroid were obtained and supplemented with color doppler. FINDINGS: Right thyroid lobe: 4.3 x 2 x 2.1 cm. heterogeneous solid nodule in the midpole measures 2.0 x 1.9 x 1.8 cm (previously 2 x 1.9 x 2 cm). Small hypoechoic nodule in the upper pole measures 0.4 x 0.4 x 0.5 cm, unchanged. Left thyroid lobe: Status post left hemithyroidectomy. No abnormal soft tissue in the surgical bed. Benign appearing left cervical lymph node measures 1 cm short axis. Isthmus: 0.2 cm in thickness. CONCLUSION: Stable heterogeneous right thyroid nodule. Correlate with fine-needle aspiration pathology from 01/19/2017. Status post left hemithyroidectomy with no evidence of residual or recurrent disease. Dictated by: Magda Wylie M.D. on 06/16/2017 at 14:16 Electronically approved by: Magda Wylie M.D. on 06/16/2017 at 14:16 Dictated By: MAGDA WYLIE MD 1416 Transcribed By: VIPUL on 06/16/17 1416 COPY TO: MANNY TONG
--- OUTSIDE RECORDS SUMMARY | 2019-05-03 16:20 | XMS REPORT | Summary of Care ---
Author Author [facility] Unknown Address Unknown Phone Unavailable Care Team Providers Care Bulb Packer Name Role Phone DAMARIS RICHARDSON M.D. Unavailable Unavailable Anali Vines M.A. Unavailable Unavailable MANNY TONG MD Unavailable Unavailable Unavailable Unavailable Functional Status Name Dates Details Functional status health issues are not documented Status: Name Dates Details Cognitive status health issues are not documented Status: Problems Name Dates Details Neck pain (723.1, M54.2) Status: Active Carpal tunnel syndrome, bilateral upper limbs (354.0, G56.03) Status: Active Medications Name Dates Details Alendronate Sodium 70 MG Oral Tablet TAKE 1 TABLET ONCE WEEKLY. Active Atorvastatin Calcium 20 MG Oral Tablet TAKE 1 TABLET DAILY. * Refills: 0 Active 90 Tablet Bottle Dexilant 30 MG Oral Capsule Delayed Release TAKE 1 CAPSULE DAILY EVERY MORNING BEFORE BREAKFAST. * Refills: 0 Active Gabapentin 300 MG Oral Capsule TAKE 1 CAPSULE 3 TIMES DAILY. * Refills: 0 Active HydroCHLOROthiazide 25 MG Oral Tablet TAKE 1 TABLET DAILY. * Refills: 0 Active Levothyroxine Sodium 50 MCG Oral Tablet TAKE 1 TABLET DAILY. * Refills: 0 Active Claritin 10 MG Oral Capsule TAKE 1 CAPSULE DAILY * Refills: 0 Active Losartan Potassium 50 MG Oral Tablet TAKE 1 TABLET DAILY. * Refills: 0 Active 30 Tablet Bottle Metoprolol Tartrate 100 MG Oral Tablet TAKE 1 TABLET TWICE DAILY. * Refills: 0 Active Multivitamins TABS TAKE 1 TABLET DAILY. * Refills: 0 Active Proventil NEBU USE DIRECTED. * Refills: 0 Active Sertraline HCl - 25 MG Oral Tablet TAKE 1 TABLET DAILY. * Refills: 0 Active 30 Tablet Bottle Vitamin D CAPS TAKE 1 CAPSULE WEEKLY * Refills: 0 Active Lidocaine 5 % External Patch APPLY DIRECTED. * Quantity: 10 Refills: 0 DAMARIS RICHARDSON M.D. * Start : 16-Feb-2018 Active Allergies and Adverse Reactions Name Dates Details No Known Allergies (Allergy) Status: Active Procedures Procedure Dates Details History of Thyroid surgery Completed History of Appendectomy Completed History of Hernia repair Completed History of Ovarian cystectomy Completed Immunization Name Dates Details Immunizations not documented Family History Name Dates Details Family history of Status: Active Name Dates Details Family history of Status: Active Social History Name Dates Details - Status: Name Dates Details Never smoker Vital Signs Date Test Result Details No Known Vitals to report Results Date Description Value Details Results not documented Plan of Care Name Dates Details Planned Observations Planned Goals not documented Instructions Name Dates Details Instructions not documented Encounters Appointment; GARETT PUTNAM M.D. Encounter Diagnosis: Problem not documented On: 16-Feb-2018 14:00 Appointment; SONIDO PRYOR M.D. Encounter Diagnosis: Problem not documented On: 15-Apr-2018 12:30 Appointment; JORDIN SCHAFER M.D. Encounter Diagnosis: Problem not documented On: 11-Jun-2018 8:00
[2019-05-03] MEDS ORDERED: CLONIDINE HCL 0.2 MG TAB PO NR (16:45)
--- NOTE | 2019-05-03 17:22 | Diagnostic Imaging Report ---
History: Trauma, fall x8 days ago Comparison studies: No prior studies are available on the PACS for comparison at the time of dictation. Technique: Axial images were obtained from the brain and cervical spine. Coronal and sagittal images reconstructed from the axial data. Dose modulation, iterative reconstruction, and/or weight based adjustment of the mA/kV was utilized to reduce the radiation dose to as low as reasonably achievable. Intravenous contrast: None Findings: Head CT: Scalp: No abnormalities. Bones: No fractures, blastic or lytic lesions. Extra-axial spaces: No masses. No fluid collections. Brain sulci: Appropriate for age. Ventricles: Normal in size and configuration. No hydrocephalus. Extra-axial spaces: Incidental small congenital parafalcine lipomas. No other mass or fluid collection. Parenchyma: A few scattered hypodensities in the supratentorial white matter are nonspecific but most compatible with chronic small vessel ischemic changes. No masses, acute hemorrhage, acute or chronic vascular insults. Sellar/suprasellar region: No abnormalities. Craniocervical junction: The foramen magnum is patent. No Chiari one malformation. Cervical spine CT: Fractures: None. Soft tissues: No gross abnormalities. Atlantoaxial articulation: Intact. Alignment: Normal lordosis. No scoliosis. Cervicomedullary junction: No abnormalities. The foramen magnum is patent. Vertebrae: No infection or neoplasm. Degenerative changes: Disc height is maintained. Patent canal and foramina. Facet arthrosis on the left at C5-C6 and at C7-T1 facet arthrosis. Incidental findings: Partially imaged thyroid gland with right thyroid nodules, largest of which measures approximately 2.0 cm. IMPRESSION: Head CT: 1. No acute abnormalities. 2. Mild chronic microvascular ischemic changes. Cervical spine CT: 1. No cervical spine fracture subluxation. 2. Incidental right thyroid lobe nodules. Per 06/25/2018 ultrasound, dominant nodule meets criteria for FNA. Cannot exclude ligament, spinal cord and or vascular abnormalities on the basis of this examination. Signed by: Dr. Live Miller M.D. on 05/03/2019 5:19 PM
--- NOTE | 2019-05-03 18:05 | Diagnostic Imaging Report ---
Lumbar Spine Radiographs: 3 views HISTORY: Fall 8 days ago. COMPARISON: None available. DISCUSSION: Some of the osseous structures are partially obscured by stool and bowel gas. There are five non-rib bearing lumbar vertebral bodies. The alignment of the spine is within normal limits. No displaced fracture or compression deformity is identified. Disc Spaces: Mild multilevel degenerative changes throughout the lumbar spine, worse at L1-L2 and L5-S1. Facets: Facet arthrosis at L5-S1 resulting in foraminal narrowing. Coil material overlying the right upper quadrant. IMPRESSION: No acute radiographic abnormality. Signed by: Dr. Mima Mantilla M.D. on 05/03/2019 6:02 PM
--- NOTE | 2019-05-03 18:08 | Diagnostic Imaging Report ---
SACRUM AND COCCYX X-RAY - 3 VIEWS HISTORY: ^[id number] ^[id number] ^FALL COMPARISON: None available. FINDINGS: Bones: Mild cortical irregularity at the junction of the sacrum and coccyx suggestive of mildly displaced fracture. Osseous alignment is within normal limits. Joints: The joint spaces are well-maintained. Soft tissues: The soft tissues appear unremarkable. IMPRESSION: Suspected mild displaced fracture at the junction of the sacrum and coccyx. Recommend follow-up x-ray in 2 weeks. Signed by: Dr. Mima Mantilla M.D. on 05/03/2019 6:05 PM
== END 2019-05-03 18:34 | disposition home or self-care (01) ==
LOC: ER 16:16
DX: S00.83XA Contusion of other part of head, initial encounter (principal); R51 Headache; M54.2 Cervicalgia; S30.0XXA Contusion of lower back and pelvis, initial encounter; S32.2XXA Fracture of coccyx, initial encounter for closed fracture; W18.2XXA Fall in (into) shower or empty bathtub, initial encounter; Y93.E1 Activity, personal bathing and showering; Y92.002 Bathroom of unspecified non-institutional (private) residence as the place of occurrence of the external cause; I10 Essential (primary) hypertension; E11.9 Type 2 diabetes mellitus without complications
CPT/HCPCS: 70450; 72100; 72125; 72220; 99284

== ENCOUNTER → 2019-07-12 | Outpatient (CLI) | payer MEDICARE ==
--- NOTE | 2019-07-13 09:00 | Diagnostic Imaging Report ---
EXAM: Thyroid Ultrasound INDICATION: ^[id number] ^[id number] ^THYROID NODULE COMPARISON: Thyroid ultrasound of 06/25/2018, ultrasound-guided thyroid biopsy of 07/12/2018 TECHNIQUE: Transverse and sagittal images were obtained of the thyroid gland. FINDINGS: Thyroid gland: Size: Right lobe: 5.1 x 2.1 x 2.6 cm, Normal in size Left lobe: Surgically absent Isthmus: Absent Appearance: Heterogeneous echotexture without increased vascularity Masses/Nodules: Right lobe: 2.3 x 1.9 x 2.1 cm solid (2 pts) nodule in the mid pole with smooth margin (0 pts), bdbiog-bcuv-buza (3 pts), isoechoic (1 pt), and no calcifications (0 pts). TR4c (>1.5 cm), Moderately Suspicious: FNA. It previously measures 2.8 x 2.1 x 2.1 cm per report. FNA obtained on 01/19/2017 and 07/12/2018. 0.6 cm cystic (0 pts) nodule in the superior pole with smooth margin (0 pts), qjzez-pjhv-isuj (0 pts), anechoic (0 pts), and no calcifications (0 pts). Previously 0.7 cm. TR1, Benign: No FNA 0.6 cm cystic (0 pts) nodule in the inferior pole with smooth margin (0 pts), nlutm-jtuu-ezaa (0 pts), anechoic (0 pts), and no calcifications (0 pts). Previously 0.6 cm. TR2, Not Suspicious: No FNA. Parathyroid: No focal parathyroid masses. 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 No recurrent nodules at the surgical site. 2.3 x 1.9 x 2.1 cm solid right thyroid nodule appears similar in size and outline for differences in technique compared to 06/25/2018. This nodule was previously biopsied with thyroid FNA. TI-RADS Lexicon: TR1, Benign: No FNA TR2, Not Suspicious: No FNA. TR3a (<1.5 cm): No follow-up. TR3b (1.5-2.5 cm), Mildly Suspicious: Follow at 1, 3, 5 years. TR3c (>2.5 cm), Mildly Suspicious: FNA. TR4a (<1.0 cm): No follow-up. TR4b (1.0-1.5 cm), Moderately Suspicious: Follow at 1, 2, 3, 5 years. TR4c (>1.5 cm), Moderately Suspicious: FNA. TR5a (<0.5 cm): No follow-up. TR5b (0.5-1.0 cm), Highly Suspicious: Follow at 1, 2, 3, 4, 5 years. TR5c (>1.0 cm), Highly Suspicious: FNA. *Rebiopsy if new suspicious features *No recommendation at this time for significant interval growth. Nodule Characteristics: * Benign features: cystic, hyperechoic, comet-tail artifact, complete halo * Minor suspicious features: solid, hypoechoic, other calcifications * Major suspicious features: microcalcifications, marked hypoechoic (less than strap muscle), suspicious lymph nodes, taller than wide, lobulated or ill-defined margins. Literature: ACR Thyroid Imaging, Reporting and Data System (TI-RADS): White Paper of the ACR TI-RADS Committee. J Am Sneha Radiol 2017. Signed by: Julio Vázquez MD on 07/13/2019 8:56 AM
== END ==
LOC: US 13:41
PROVIDERS: ATTEND Otolaryngology
DX: E04.1 Nontoxic single thyroid nodule (principal)
CPT/HCPCS: 76536

== ENCOUNTER → 2020-06-21 | Outpatient (CLI) | payer MEDICARE ==
--- NOTE | 2020-06-21 09:24 | Diagnostic Imaging Report ---
EXAM: Thyroid Ultrasound INDICATION: ^[id number] ^[id number] ^THYROID NODULE COMPARISON: Multiple prior thyroid ultrasounds, most recently 07/12/2019 TECHNIQUE: Transverse and sagittal images were obtained of the thyroid gland. FINDINGS: Thyroid gland: Size: Right lobe: 4.9 x 2.3 x 2.6 cm Left lobe: Surgically absent Isthmus: Absent Appearance: Heterogeneous echotexture without increased vascularity Masses/Nodules: Right lobe: 2.3 x 1.8 x 2.0 cm solid (2 pts) nodule in the mid pole with smooth margin (0 pts), wider than tall (0 points), isoechoic (1 pt), and no calcifications (0 pts). This nodule was previously 2.3 x 1.9 x 2.1 cm. Parathyroid: No focal parathyroid masses. 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 No recurrent nodules at the surgical site. Unchanged right thyroid nodule. This nodule was previously biopsied with thyroid FNA. TI-RADS Lexicon: TR1, Benign: No FNA TR2, Not Suspicious: No FNA. TR3a (<1.5 cm): No follow-up. TR3b (1.5-2.5 cm), Mildly Suspicious: Follow at 1, 3, 5 years. TR3c (>2.5 cm), Mildly Suspicious: FNA. TR4a (<1.0 cm): No follow-up. TR4b (1.0-1.5 cm), Moderately Suspicious: Follow at 1, 2, 3, 5 years. TR4c (>1.5 cm), Moderately Suspicious: FNA. TR5a (<0.5 cm): No follow-up. TR5b (0.5-1.0 cm), Highly Suspicious: Follow at 1, 2, 3, 4, 5 years. TR5c (>1.0 cm), Highly Suspicious: FNA. *Rebiopsy if new suspicious features *No recommendation at this time for significant interval growth. Nodule Characteristics: * Benign features: cystic, hyperechoic, comet-tail artifact, complete halo * Minor suspicious features: solid, hypoechoic, other calcifications * Major suspicious features: microcalcifications, marked hypoechoic (less than strap muscle), suspicious lymph nodes, taller than wide, lobulated or ill-defined margins. Literature: ACR Thyroid Imaging, Reporting and Data System (TI-RADS): White Paper of the ACR TI-RADS Committee. J Am Sneha Radiol 2017. Signed by: Julio Vázquez MD on 06/21/2020 9:20 AM
== END ==
LOC: US 08:12
PROVIDERS: ATTEND Otolaryngology
DX: E04.1 Nontoxic single thyroid nodule (principal)
CPT/HCPCS: 76536

== ENCOUNTER → 2021-09-13 | Outpatient (CLI) | payer MEDICARE | LOC: US 10:42 | PROVIDERS: ATTEND Otolaryngology | DX: E04.1 Nontoxic single thyroid nodule (principal) | CPT/HCPCS: 76536 ==

== ENCOUNTER → 2021-11-11 | Outpatient (CLI) | payer MEDICARE | LOC: US 09:50 | PROVIDERS: ATTEND Otolaryngology | DX: E04.1 Nontoxic single thyroid nodule (principal) | CPT/HCPCS: 10005; 88112; 88305 ==

== ENCOUNTER → 2022-12-09 | Outpatient (CLI) | payer MEDICARE | LOC: US 13:10 | PROVIDERS: ATTEND Otolaryngology | DX: E04.1 Nontoxic single thyroid nodule (principal) | CPT/HCPCS: 76536 ==